=== PATIENT | female | born 1990 | race Caucasian/White ===

== ENCOUNTER 2023-08-18 14:31 | Emergency (ER) | payer OTHER, SELFPAY ==
[2023-08-18 14:32] VITALS: BP 144/90
[2023-08-18 14:54] LABS: % Basophils 0.7 % (0-2); % Eosinophils 1.3 % (0-6); % Immature Granulocytes 0.1 % (0-0.5); % Lymphocytes 37.2 % (20.5-51.1); % Monocytes 7.5 % (1.7-9.3); % Neutrophils 53.2 % (42.2-75.2); Absolute Basophils 0.1 10^3/uL (0-0.2); Absolute Eosinophils 0.1 10^3/uL (0-0.7); Absolute Lymphocytes 2.6 10^3/uL (1.2-3.4); Absolute Monocytes 0.5 10^3/uL (0.1-0.6); Absolute Neutrophils 3.7 10^3/uL (1.4-6.5); Hematocrit 35.9 % (37.0-47.0); Hemoglobin 12.8 g/dL (12.0-16.0); Mean Corp Hgb Conc. 35.7 g/dL (33.0-37.0); Mean Corpuscular Hgb 32.4 pg (27.0-31.0); Mean Corpuscular Volume 90.9 fL (81.0-99.0); Mean Platelet Volume 8.8 fL (7.4-10.4); Nucleated Red Blood Cells % 0 %; Platelet Count 261 10^3/uL (130-400); Red Blood Cell Count 3.95 10^6/uL (4.20-5.40); Red Cell Dist. Width 12.1 % (11.5-14.5); White Blood Cell Count 6.9 10^3/uL (4.8-10.8)
[2023-08-18 15:06] LABS: Urine Albumin Negative (Neg - Trace); Urine Bilirubin Negative (Negative); Urine Character Clear (Clear); Urine Color Yellow; Urine Glucose Negative (Negative); Urine Ketone Negative (Negative); Urine Leukocyte Negative (Negative); Urine Nitrite Negative (Negative); Urine Occult Blood Negative (Negative); Urine Urobilinogen Negative (Neg - 1+)
[2023-08-18 15:51] LABS: ALT (SGPT) 25 U/L (0-35); AST (SGOT) 29 U/L (14-36); Albumin 4.5 g/dl (3.5-5.0); Alkaline Phosphatase 79 U/L (38-126); Blood Urea Nitrogen 13 mg/dl (7-17); Calcium 9.8 mg/dl (8.4-10.2); Carbon Dioxide 23 mmol/L (22-30); Chloride 105 mmol/L (98-107); Glucose 100 mg/dl (70-99); Potassium 3.8 mmol/L (3.5-5.1); Sodium 138 mmol/L (135-145); Total Bilirubin 0.5 mg/dl (0.2-1.3); Total Protein 7.1 g/dl (6.3-8.2); eGFR > 60.00
[2023-08-18] MEDS: PERCOCET 5/325 1 TABLET PO (17:03)
[2023-08-18 17:05] VITALS: BMI 28.5
[2023-08-18 17:07] VITALS: BP 129/76
[2023-08-18 17:49] LABS: HCG, Serum Qualitative Screen Negative
--- NOTE | 2023-08-18 19:06 | ED.GENMED ---
History of Present Illness
General
Chief Complaint: Flank Pain
Source: patient
Exam Limitations: none
Time Seen by Provider: 08/18/23 16:39
Nursing documentation reviewed up to this point in time: agreed with
History of Present Illness
History of Present Illness:
Patient to ED wtih compllaint of right flank pain radiating to right groin. Symptoms started on . Denies fever/chills. History of kidney stones. States this pain is worse. 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 Usure of this is
related.
Past History
Past History
ED Past Medical History: None and Other (Kidney stones)
ED Past Surgical History: Gynecological (C section 5 months ago) and Other (wisdom teeth)
Social History
Tobacco: Smoker (Half pack per day)
Alcohol: Daily (tequilla 1-2 drinks)
Drug: None
Personal: Single
Living: with family
Employment: Not employed
Family History
Family History: Diabetes
Phy Exam
General Physical Exam
General Presentation: well appearing and no apparent distress
General age: appears stated age
General Skin: warm and dry
General Habitus: normal
General Mental: alert
Pulmonary Exam
Pulmonary Exam: no respiratory distress and chest non tender
Gastrointestinal Exam
Gastrointestinal Exam: normal bowel sounds, non tender, soft and no organomegaly
Abdominal Scars: right flank
Musculoskeletal Exam
Musculoskeletal Exam: full ROM and neuro vasc intact
Skin Exam
Skin Exam: normal color, warm/dry and no rash
Psychiatric Exam
Psychiatric Exam: normal mood/affect
Course
Orders/Labs/Results
Orders:
Orders
08/18/23 14:44
CMP [Comprehensive Metabolic Panel] Urgent
Complete Blood Count/With Diff Urgent
HCG, Serum Qualitative Screen Urgent
Comment: ADDON
Urinalysis Reflex To Culture Urgent
Date Specimen was Collected: 08/18/23
Time Specimen was Collected: 14:37
08/18/23 16:55
CT Abd/pel Without Iv Or Oral Urgent
Comment:
Reason For Exam: Right flank pain
Oxycodone/Acetaminophen [Percocet 5/325] 1 tablet PO NOW STA
08/18/23 17:29
Add On- LAB Urgent
Tests Added?: hcg serum qualitative
08/18/23 19:02
Ibuprofen [Motrin] 600 mg PO NOW STA
Abnormal Lab Results
08/18/23
14:44
RBC 3.95 L 10^6/uL
(4.20-5.40)
Hct 35.9 L %
(37.0-47.0)
MCH 32.4 H pg
(27.0-31.0)
Glucose 100 H mg/dl
(70-99)
08/18/23 14:44
08/18/23 14:44
Vital Signs
Initial and Last Documented VS:
Initial Vital Signs
Temp Pulse Resp BP Pulse Ox
99.3 F 84 18 144/90 100
08/18/23 14:32 08/18/23 14:32 08/18/23 14:32 08/18/23 14:32 08/18/23 14:32
Last Documented Vital Signs
Temp Pulse Resp BP Pulse Ox
99.3 F 80 18 129/76 99
08/18/23 14:32 08/18/23 17:07 08/18/23 17:07 08/18/23 17:07 08/18/23 17:07
*Radiology
Radiology exam reviewed: radiology read reviewed
*Pulse Oximetry
Patient hypoxic: no
*Critical Care Note
Total Time (30-74mins, 75-104mins- exclusive of procedures): Not Applicable
ED Attending Note
-
Portions of this chart may have been created with voice recognition software.� Occasional wrong word or��sound alike� substitutions may have occurred due to the inherent limitations of voice recognition software.
Discharge Plan
Departure
Patient Disposition: Home (Routine Discharge)
Date of Disposition: 08/18/23
Time of Disposition: 19:03
Patient with high blood pressure during this ER visit?: No
Condition: Good
Covid-19: Not Applicable
Discharge Problem:
Back pain
Instructions: Using Cold for Pain, Ibuprofen, Musculoskeletal Pain
Prescriptions:
New
cyclobenzaprine 10 mg tablet
10 mg PO HS PRN (Reason: muscle spasms) Qty: 10 0RF
No Action
nitrofurantoin monohyd/m-cryst [Macrobid] 100 mg Capsule
100 mg PO BID
Referrals:
UNKNOWN - PT DOES,NOT KNOW [Family Provider] -
Activity Restrictions/Additional Instructions:
Follow up with your family doctor.
Interventions
Interventions:
*Risk Screen - Suicide Last Done: 08/18/23 17:05
*General Assessment Last Done: 08/18/23 17:05
*Neglect/Abuse Screening Last Done: 08/18/23 17:05
ED- Fall Risk Assessment Last Done: 08/18/23 17:07
*ED COVID-19 Vaccine History Last Done: 08/18/23 17:05
MM-Tchlby-Mjshxwfbtw Assessment Last Done: 08/18/23 17:07
ED-Female Genitourinary Assessment Last Done: 08/18/23 17:07
Discharge Date and Time
Print Language: TAIWANESE
[2023-08-18] MEDS: MOTRIN 600 MG PO (19:29)
== END 2023-08-18 19:33 | disposition home or self-care (01) ==
LOC: EMR 14:31
PROVIDERS: EMERGENCY PHYSICIAN Emergency Medicine
DX: M54.9 Dorsalgia, unspecified (principal); R10.9 Unspecified abdominal pain; F41.9 Anxiety disorder, unspecified; F32.A Depression, unspecified; F17.210 Nicotine dependence, cigarettes, uncomplicated; Z88.8 Allergy status to other drugs, medicaments and biological substances
CPT/HCPCS: 99284; 74176; 80053; 81003; 84703; 85025

== ENCOUNTER 2024-02-28 08:55 | Emergency (ER) | payer OTHER, SELFPAY ==
--- NOTE | 2024-02-28 09:11 | EDRN ---
Triage done by ALKA MITCHELL.
[2024-02-28 09:27] VITALS: BP 133/88
--- NOTE | 2024-02-28 10:50 | ED.GENMED ---
History of Present Illness
General
Chief Complaint: Cold/Flu/URI Symptoms
Source: patient
Exam Limitations: none
Time Seen by Provider: 02/28/24 10:26
Nursing documentation reviewed up to this point in time: agreed with
History of Present Illness
History of Present Illness:
pt is a 33 y/o F
no chronic medical problems
here with URI ss x 8 days
sore throat, congestion, cough productive green mucus
not slepeing
son is also here with same sypmtoms but he is mroe sick
no vomiting, diarrhea
pt is eating/drinking
no known fever, has had subjective chills/sweats but never efebrile
regular vaccines
Past History
Past History
ED Past Medical History: None and Other (Kidney stones)
ED Past Surgical History: Gynecological (C section 5 months ago) and Other (wisdom teeth)
Social History
Tobacco: Smoker (Half pack per day)
Alcohol: Daily (tequilla 1-2 drinks)
Drug: None
Personal: Single
Living: with family
Employment: Not employed
Family History
Family History: Diabetes
Review of Systems
Review of Systems
Allergies reviewed?: Yes
All Other Systems: Not applicable
Phy Exam
Physical Exam
Physical Exam:
GENERAL: Alert , in no apparent distress
EYE: pupils equal and reactive
NECK: Supple
ENT: b/l TM s clear, pharynx erythematous but no tonsillar hypertrophy or exudates
CARDIAC: Regular rate and rhythm, no edema
LUNGS: Clear breath sounds bilaterally, no acute respiratory distress, no wheezes/rales/rhonchi, occ cough
ABDOMEN: Soft, without focal tenderness, no r/g, no cvat, normal bowel sounds
NEUROLOGICAL: Alert and oriented, no focal neuro deficits
SKIN: Warm and dry, skin intact.
MUSCULOSKELETAL: No edema, well perfused.
PSYCH: Normal and appropriate interaction.
Course
Orders/Labs/Results
Orders:
Orders
02/28/24 10:49
CR Chest - 2 Views Urgent
Comment:
Reason For Exam: cough productive green mucus
02/28/24 11:00
COVID-19 Antigen Urgent
Source: Nasal Swab
Influenza A+B Rapid Molecular Urgent
ALEXIS Source: Nasal Swab
Specimen Description:
Vital Signs
Initial and Last Documented VS:
Initial Vital Signs
Temp Pulse Resp BP Pulse Ox
37.4 C 97 16 133/88 98
02/28/24 09:27 02/28/24 09:27 02/28/24 09:27 02/28/24 09:27 02/28/24 09:27
Last Documented Vital Signs
Temp Pulse Resp BP Pulse Ox
37.4 C 97 16 102/55 97
02/28/24 09:27 02/28/24 09:27 02/28/24 09:27 02/28/24 12:24 02/28/24 12:24
MDM/Problems Addressed
Differential Diagnosis Includes:
covid, flu, pneumonia, sinusitis
MDM/Problems Addressed:
33 y/o F
here with son
she and her son have had uri sxs, sore throat, cough, bodyaches, not sleeping for 8 days
denied feeling SOB to me; subjective chills
no resp distress
afebrile
normla pulse ox
lung sclear
pharynx erythematous, and swollen turbinates
occ cough
flu a +
cxr indep reviewed by me, neg
bart dc with supportive therapy
if no iprvoement in 2 days start augmentin
*Critical Care Note
Total Time (30-74mins, 75-104mins- exclusive of procedures): Not Applicable
ED Attending Note
-
Portions of this chart may have been created with voice recognition software.� Occasional wrong word or��sound alike� substitutions may have occurred due to the inherent limitations of voice recognition software.
Discharge Plan
Departure
Patient Disposition: Home (Routine Discharge)
Date of Disposition: 02/28/24
Time of Disposition: 12:05
Patient with high blood pressure during this ER visit?: No
Condition: Fair
Covid-19: Negative COVID-19
Discharge Problem:
Influenza A
Instructions: Flu in adults - ED discharge instructions
Prescriptions:
New
amoxicillin-pot clavulanate 875-125 mg tablet
1 tab PO BID Qty: 14 0RF
No Action
nitrofurantoin monohyd/m-cryst [Macrobid] 100 mg Capsule
100 mg PO BID
cyclobenzaprine 10 mg tablet
10 mg PO HS PRN (Reason: muscle spasms) Qty: 10 0RF
Referrals:
UNKNOWN - PT DOES,NOT KNOW [Family Provider] -
Activity Restrictions/Additional Instructions:
YOU TESTED POSITIVE FOR THE FLU
IT IS A VIRUS AND WILL RESOLVE
TRY TO TREAT YOUR SYMTOMS WITH OVER THE COUNTER MEDICATION
TYLENOL/MOTRIN, MUCINEX, SUDAFED
IF YOU ARE TSILL HAVING A LOT OF COUGH/MUCUS IN 2 DYAS YOU CAN TRY AUGMENTIN TWICE A DAY FOR 7 DAYS
RETURN FOR: LETHARGY, SHORTNESS OF BREATH, WEAKNESS, VOMITING, OR ANY CONCERNS
Interventions
Interventions:
*Risk Screen - Suicide Last Done: 02/28/24 12:15
*Neglect/Abuse Screening Last Done: 02/28/24 12:15
ED- Fall Risk Assessment Last Done: 02/28/24 11:08
*ED COVID-19 Vaccine History Last Done: 02/28/24 12:15
*Nursing Disposition Last Done: 02/28/24 12:51
ED- Pulmonary Assessment Last Done: 02/28/24 11:08
Discharge Date and Time
Discharge Date/Time: 02/28/24 12:52
Print Language: FAROESE
[2024-02-28 11:54] LABS: COVID-19 Antigen Negative (Negative)
[2024-02-28 12:24] VITALS: BP 102/55
== END 2024-02-28 12:52 | disposition home or self-care (01) ==
LOC: EMR 08:55
PROVIDERS: Physician Assistant; EMERGENCY PHYSICIAN Emergency Medicine
DX: J10.1 Influenza due to other identified influenza virus with other respiratory manifestations (principal); Z11.52 Encounter for screening for COVID-19; I73.00 Raynaud's syndrome without gangrene; K58.9 Irritable bowel syndrome, unspecified; F41.9 Anxiety disorder, unspecified; F32.A Depression, unspecified; F17.210 Nicotine dependence, cigarettes, uncomplicated; Z87.442 Personal history of urinary calculi; Z88.8 Allergy status to other drugs, medicaments and biological substances
CPT/HCPCS: 99283; 71046; 87502; 87811